=== PATIENT | female | born 1980 | race Caucasian/White ===

== ENCOUNTER 2017-05-18 22:34 | Emergency (ER) | payer OTHER ==
[~2017-05-18] VITALS: Ht 160 cm; Wt 70.4 kg
[2017-05-18 22:35] VITALS: TEMP 36.9; Ht 160 cm; Wt 70.4 kg
[2017-05-18] MEDS ORDERED: SODIUM CHLORIDE 0.9% 1000ML 1,000 ML IV STA (22:41)
[2017-05-18] MEDS ORDERED: ONDANSETRON INJ 2 MG/ML 2 ML VIAL IV STA (22:41)
[2017-05-18] MEDS ORDERED: KETOROLAC TROMETHAMINE 30 MG/ML VIAL IV STA (22:41)
[2017-05-18] MEDS ORDERED: SUMA50TA15 PO (23:01)
[2017-05-18] MEDS ORDERED: ASPI-390 PO (23:01)
[2017-05-18] MEDS ORDERED: IBUP-1050 PO (23:01)
[2017-05-18] MEDS ORDERED: CRAN400C PO (23:01)
[2017-05-18 23:08] LABS: BASO % 0.1 %; BASO ABS # 0.02 K/uL (0-0.2); EOS % 0.5 %; EOS ABS # 0.08 K/uL (0-0.5); HEMATOCRIT 39.6 % (37-47); HEMOGLOBIN 14.3 g/dL (12.0-16.0); IG# 0.04 K/uL (0.00-0.02); LYMPH % 17.4 %; LYMPH ABS # 2.66 K/uL (1.2-3.4); MEAN CELL VOLUME 87.4 fL (80-100); MEAN CORPUSCULAR HEMOGLOBIN 31.6 pg (25-34); MEAN CORPUSCULAR HGB CONC 36.1 g/dl (32-36); MEAN PLATELET VOLUME 10.3 fL (7.4-10.4); MONO % 5.9 %; MONO ABS # 0.91 K/uL (0.11-0.59); NEUT % 75.8 %; PLATELET COUNT 302 K/uL (130-400); RED CELL DISTRIBUTION WIDTH CV 12.8 % (11.5-14.5); RED CELL DISTRIBUTION WIDTH SD 41.2 fL (36.4-46.3); WHITE BLOOD COUNT 15.31 K/uL (4.8-10.8)
[2017-05-18 23:31] LABS: ALBUMIN 3.4 gm/dl (3.4-5.0); ALT/SGPT 32 U/L (12-78); AST/SGOT 17 U/L (15-37); BLOOD UREA NITROGEN 7 mg/dl (7-18); CALCIUM 8.7 mg/dl (8.5-10.1); CARBON DIOXIDE 26 mmol/L (21-32); CREATININE 0.87 mg/dl (0.60-1.20); GLUCOSE 85 mg/dl (70-99); POTASSIUM 3.4 mmol/L (3.5-5.1); SODIUM 141 mmol/L (136-145)
[2017-05-18 23:33] LABS: ALKALINE PHOSPHATASE 90 U/L (45-117); TOTAL PROTEIN 7.1 gm/dl (6.4-8.2)
[2017-05-18] MEDS ORDERED: CEFTRIAXONE SOD INJ 1 GM ADDVIAL IV STA (23:58)
[2017-05-19] MEDS ORDERED: POTASSIUM CHLORIDE 10 MEQ TABCR PO STA (00:07)
[2017-05-19] MEDS ORDERED: PHENAZOPYRIDINE HOME PACK 200 MG VIAL PO ONE (00:15)
--- NOTE | 2017-05-19 00:42 | EMERGENCY ROOM VISIT NOTE ---
History First contact with patient: 22:36 Chief Complaint: URINARY SYMPTOMS Stated Complaint: BURNING WHEN PEEING, PAIN IN STOMACH/LEFT SIDE History of Present Illness The patient is a 36 year old female who presents to the Emergency Room with complaints of urinary symptoms for the past 3 days who developed left side lower quadrant pain today. Patient is a history of UTIs. She seen a urologist in the past for it. Last one was 2 months ago. No history of antibiotic resistance in the past. She describes pain as discomfort, ranging in severity 5 out of 10. Nothing makes it better or worse. It does not radiate. Patient denies chest pain, dyspnea, fever, chills, nausea, vomiting, diarrhea, back pain , vaginal complaints. She is in a monogamous relationship. Review of Systems An 10 system review of systems was completed with positives and pertinent negatives listed in the HPI. Past Medical/Surgical History Cholecystectomy, tubal ligation, cervical carcinoma, UTI Social History Smoking Status: Current Every Day Smoker Smokeless Tobacco Use: No Alcohol Use: none Drug Use: none Marital Status: Housing Status: lives with family Occupation Status: employed Current/Historical Medications Scheduled Cefdinir (Omnicef), 300 MG PO Q12H Cranberry (Vaccinium Macrocarp (Cranberry), 1 TAB PO DIRECTED Ondasetron Odt (Zofran Odt), 4 MG SL Q6H Phenazopyridine HCl (Pyridium), 200 MG PO TID Scheduled PRN Tpoczeo-Owrmlrpbxcvyj-Dsrpspzu (Excedrin Migraine), 1 TAB PO DIRECTED PRN for Migraine Ibuprofen (Advil), 200-600 MG PO Q4H PRN for Pain or Fever Sumatriptan Succinate (Imitrex), 1 TAB PO DIRECTED PRN for Migraine Physical Exam Vital Signs Date Time Temp Pulse Resp B/P (MAP) Pulse Ox O2 Delivery O2 Flow Rate FiO2 05/19/17 00:09 89 16 106/56 96 Room Air 05/18/17 22:35 36.9 102 20 121/85 97 Room Air Physical Exam VITALS: Vitals are noted on the nurse's note and reviewed by myself. Vital signs stable. GENERAL: Pleasant female, in no acute distress, nondiaphoretic, well-developed well-nourished. SKIN: The skin was without rashes, erythema, edema, or bruising. There is no tenting of the skin. Capillary reflex less than 2 seconds. HEAD: Normocephalic atraumatic. EARS: External auditory canals clear EYES: Pupils equal round and reactive to light and accommodation. Conjunctivae without injection, sclerae without icterus. Extraocular movements intact. NOSE: Patent, turbinates without inflammation or discharge. No sinus tenderness. MOUTH: Mucous membranes moist. Pharynx without erythema or exudate. Uvula midline. Airway patent. Tongue does not deviate. NECK: Supple without nuchal rigidity. No lymphadenopathy. No thyromegaly. Cervical spine is nontender. No JVD. HEART: Regular rate and rhythm without murmurs gallops or rubs. LUNGS: Clear to auscultation bilaterally without wheezes, rales or rhonchi. No retractions or accessory muscle use. ABDOMEN: Positive bowel sounds x 4. Normal tympanic percussion. Soft, tender over bladder region, minimal left CVA tenderness without masses or organomegaly. Ward sign negative. No guarding or rebound tenderness. MUSCULOSKELETAL: No muscle atrophy, erythema, or edema noted. NEURO: Patient was alert and oriented to person place and time. Normal sensation to light and sharp touch. No focal neurological deficits. Medical Decision & Procedures Laboratory Results 05/18/17 23:00 Red Blood Count 4.53, Mean Corpuscular Volume 87.4, Mean Corpuscular Hemoglobin 31.6, Mean Corpuscular Hemoglobin Concent 36.1, Mean Platelet Volume 10.3, Neutrophils (%) (Auto) 75.8, Lymphocytes (%) (Auto) 17.4, Monocytes (%) (Auto) 5.9, Eosinophils (%) (Auto) 0.5, Basophils (%) (Auto) 0.1, Neutrophils # (Auto) 11.60, Lymphocytes # (Auto) 2.66, Monocytes # (Auto) 0.91, Eosinophils # (Auto) 0.08, Basophils # (Auto) 0.02 05/18/17 23:00 Test 05/18/17 23:00 White Blood Count 15.31 K/uL (4.8-10.8) Red Blood Count 4.53 M/uL (4.2-5.4) Hemoglobin 14.3 g/dL (12.0-16.0) Hematocrit 39.6 % (37-47) Mean Corpuscular Volume 87.4 fL (80-100) Mean Corpuscular Hemoglobin 31.6 pg (25-34) Mean Corpuscular Hemoglobin Concent 36.1 g/dl (32-36) Platelet Count 302 K/uL (130-400) Mean Platelet Volume 10.3 fL (7.4-10.4) Neutrophils (%) (Auto) 75.8 % Lymphocytes (%) (Auto) 17.4 % Monocytes (%) (Auto) 5.9 % Eosinophils (%) (Auto) 0.5 % Basophils (%) (Auto) 0.1 % Neutrophils # (Auto) 11.60 K/uL (1.4-6.5) Lymphocytes # (Auto) 2.66 K/uL (1.2-3.4) Monocytes # (Auto) 0.91 K/uL (0.11-0.59) Eosinophils # (Auto) 0.08 K/uL (0-0.5) Basophils # (Auto) 0.02 K/uL (0-0.2) RDW Standard Deviation 41.2 fL (36.4-46.3) RDW Coefficient of Variation 12.8 % (11.5-14.5) Immature Granulocyte % (Auto) 0.3 % Immature Granulocyte # (Auto) 0.04 K/uL (0.00-0.02) Urine Color ORANGE Urine Appearance CLOUDY (CLEAR) Urine pH 7.5 (4.5-7.5) Urine Specific [place] 1.007 (1.000-1.030) Urine Protein 2+ (NEG) Urine Glucose (UA) NEG (NEG) Urine Ketones NEG (NEG) Urine Occult Blood 3+ (NEG) Urine Nitrite NEG (NEG) Urine Bilirubin NEG (NEG) Urine Urobilinogen NEG (NEG) Urine Leukocyte Esterase LARGE (NEG) Urine WBC (Auto) >30 /hpf (0-5) Urine RBC (Auto) >30 /hpf (0-4) Urine Hyaline Casts (Auto) 1-5 /lpf (0-5) Urine Epithelial Cells (Auto) >30 /lpf (0-5) Urine Bacteria (Auto) 2+ (NEG) Urine Crystals (NONE PRSENT) Urine Test NEG (NEG) Anion Gap 7.0 mmol/L (3-11) Est Creatinine Clear Calc Drug Dose 85.7 ml/min Estimated GFR () 100.7 Estimated GFR (Non- 86.9 BUN/Creatinine Ratio 7.8 (10-20) Calcium Level 8.7 mg/dl (8.5-10.1) Total Bilirubin 0.2 mg/dl (0.2-1) Direct Bilirubin < 0.1 mg/dl (0-0.2) Aspartate Amino Transf (AST/SGOT) 17 U/L (15-37) Alanine Aminotransferase (ALT/SGPT) 32 U/L (12-78) Alkaline Phosphatase 90 U/L (45-117) Total Protein 7.1 gm/dl (6.4-8.2) Albumin 3.4 gm/dl (3.4-5.0) Medications Administered Medications (Trade) Dose Ordered Sig/Shaylee Route Start Time Stop Time Status Last Admin Dose Admin Ondansetron HCl (Zofran Inj) 4 mg NOW STAT IV 05/18/17 22:41 05/18/17 22:45 DC 05/18/17 23:00 4 MG Ketorolac Tromethamine (Toradol Inj) 30 mg NOW STAT IV 05/18/17 22:41 05/18/17 22:45 DC 05/18/17 23:01 30 MG Sodium Chloride 1,000 ml @ 999 mls/hr Q1H1M STAT IV 05/18/17 22:41 05/18/17 23:41 DC 05/18/17 23:00 999 MLS/HR Ceftriaxone Sodium (Rocephin Inj) 1 gm NOW STAT IV 05/18/17 23:58 05/18/17 23:59 DC 05/19/17 00:22 1 GM Phenazopyridine HCl (Phenazopyridine HCl 200MG Home Pack) 1 homepack UD ONCE PO 05/19/17 00:15 05/19/17 00:16 DC 05/19/17 00:22 1 HOMEPACK Potassium Chloride (Klor-Con M10) 10 meq NOW STAT PO 05/19/17 00:07 05/19/17 00:08 DC 05/19/17 00:22 10 MEQ ED Course Prior records/ancillary studies reviewed. Triage Nursing notes reviewed. Additional history obtained from family The patient's history was concerning for urinary symptoms with abdominal pain. Differential diagnosis: Etiologies such as , pyelonephritis, appendicitis, diverticulitis, UTI , pancreatitis, obstruction, mesenteric ischemia, aortic pathology, infections, inflammatory bowel disease, renal colic, as well as others were entertained. Physical examination findings: As above. ER treatment provided: Toradol, Zofran, IV fluids. Patient states she can take Motrin without difficulties. She has a mild reaction to aspirin On reassessment the patient felt better. Diagnostics interpreted by me: The labs revealed leukocytosis, negative hCG, urine concerning for infection sent for culture Imaging studies: Ultrasound of the kidneys with no signs of hydronephrosis per radiology Exam and history seem consistent with left-sided pyelonephritis. Patient was afebrile and nontoxic. She did not have acute abdomen on exam. She was not . She was well-appearing. She is tolerating fluids. She is advised to take medications as directed, stay well-hydrated and to follow-up family care in a day or 2 here in the ER sooner for high fevers, vomiting, lethargy, worsening signs or symptoms or as needed.By the evaluation outlined above emergent etiologies such as appendicitis, diverticulitis, PUD, biliary pathology , pancreatitis, obstruction, mesenteric ischemia, aortic pathology, inflammatory bowel disease, renal colic, as well as others were deemed relatively unlikely. The pt informed about the findings as listed above. All questions were answered and pleased with the treatment. Return instructions were outlined and the patient was discharged in stable condition. Outpatient prescription management: Omnicef Referral: The patient was referred back to their primary care physician for follow-up in 2 to 3 days for a recheck of the current condition. Case reviewed with my attending The chart was completed utilizing [employer] Speech voice recognition software. Grammatical errors, random word insertions, pronoun errors, and incomplete sentences are an occassional consequence of this system due to software limitations, ambient noise, and hardware issues. Any formal questions or concerns about the content, text, or information contained within the body of this dictation should be directly addressed to the physician construction project assistant for clarification. Medical Decision As above Medication Reconcilliation Current Medication List: was personally reviewed by me Blood Pressure Screening Patient's blood pressure: Normal blood pressure Impression Primary Impression: Pyelonephritis Departure Information Dispostion Home / Self-Care Condition GOOD Prescriptions Ondasetron Odt (ZOFRAN ODT) 4 Mg Tab 4 MG SL Q6H, #10 TAB Prov: Samreen Chavira ., ANJEL 05/19/17 Phenazopyridine HCl (Pyridium) 200 Mg Tab 200 MG PO TID for 2 Days, #6 TAB Prov: Samreen Chavira .ANJEL 05/19/17 Cefdinir (OMNICEF) 300 Mg Cap 300 MG PO Q12H for 10 Days, #20 CAP Prov: Samreen Chavira ., ANJEL 05/19/17 Referrals No Doctor, Assigned (PCP) Patient Instructions My [facility] Additional Instructions Omnicef 300 mg: Take one pill twice daily for 10 days for your urine infection. All antibiotics can cause diarrhea. If this occurs and you feel worse or it does not resolve in 1-2 days follow up with your doctor or return to the Emergency Department as this could be signs of serious underlying problems. Any medication can cause an allergic reaction, stop the pills immediately and return to the ER for rash, hives, breathing difficulties, or swelling. Pyridium 200mg: Take one pill three times daily as needed for urinary discomfort. This medication will turn your urine orange. This is normal and nothing to be concerned about. Zofran 4 mg: Take one every six hours as needed for nausea. Avoid alcohol, operating machinery or dangerous equipment, working on ladders or roofs, DRIVING , or situations where being under the influence may be dangerous. Ibuprofen(Motrin, Advil) may be used for fever or pain. Use 600mg every six hours as needed. Take with food. Avoid using more than 2400mg in a 24 hour period. Do not use 2400mg per day for more than three consecutive days without physician direction. Prolonged inappropriate use can lead to stomach upset or ulcers. (AND/OR) Acetaminophen(Tylenol) may be used for fever or pain. Use 1000mg every six hours as needed. Avoid using more than 3000mg in a 24 hour period. Rest and drink plenty of fluids as tolerated. Slow sips of water or sports drinks are recommended instead of large amounts all at once. Continue current medications. Once your stomach is settled start with a clear liquid diet (jello, soup broth, etc.) and then advance as tolerated. You should avoid full, heavy meals for about 24 hrs from the time your symptoms resolved. Return to the ER immediately for worsening or persistent abdominal/back pain, vomiting, fevers, worsening of your condition, or as needed. Follow up with your primary physician within 2-3 days for a recheck of the current condition.
[2017-05-19] MEDS ORDERED: PHEN-876 PO ×2 (00:44→01:02)
[2017-05-19] MEDS ORDERED: CEFD300C2 PO (00:44)
[2017-05-19] MEDS ORDERED: ONDA4TAB10 SL (00:44)
[2017-05-19] MEDS ORDERED: ONDANSETRON HOME PACK 4MG OD TAB PO ONE (00:45)
[2017-05-19 01:11] VITALS: BP 116/82; PULSE 79; O2SAT 98
--- NOTE | 2017-05-19 06:39 | DIAGNOSTIC IMAGING REPORT ---
EXAMINATION: RENAL ULTRASOUND CLINICAL HISTORY: Left flank pain COMPARISON STUDY: None FINDINGS: The right kidney measures 10.9 cm. The left kidney measures 10.5 cm. There is no evidence of hydronephrosis. There are no renal masses. The bladder was not well-distended. This may account for the circumferential wall thickening. Clinical correlation is recommended to exclude cystitis. Bilateral ureteral jets were visualized. IMPRESSION : 1. Bladder wall thickening, a finding which could be secondary to incomplete distention 2. No evidence of hydronephrosis. Electronically signed by: Josafat Obrien M.D. 05/19/2017 6:37 AM Dictated Date/Time: 05/19/2017 6:36 AM
--- NOTE | 2017-05-21 11:29 | Pharmacy Progress Note ---
ED Pharmacist Culture FollowUp Date of Service: May 21, 2017. Patient was sent home with a prescription for cefdinir 300mg BID X 10 days, which should cover the E. Coli growing from the patient's urine culture.
== END 2017-05-19 01:13 | disposition home or self-care (01) ==
LOC: C.EDB 22:35
DX: N12 Tubulo-interstitial nephritis, not specified as acute or chronic (principal); F17.200 Nicotine dependence, unspecified, uncomplicated; Z98.51 Tubal ligation status; Z90.49 Acquired absence of other specified parts of digestive tract; Z85.41 Personal history of malignant neoplasm of cervix uteri